=== PATIENT | male | born 1980 | race Caucasian/White ===

== ENCOUNTER → 2017-01-11 | Outpatient (REF) ==
[~2017-01-11] MED LIST: ALBUTEROL S0.4 MG/ML; DILANTIN 100MG100 MG PO; PHENERGAN 25 TA25 MG; RT ADVAIR 228 DISKUS; VICODIN 5/5001 UDTAB PO
== END ==
LOC: WSOH 10:33
DX: Z02.1 Encounter for pre-employment examination (principal)

== ENCOUNTER 2020-02-05 15:10 | Emergency (ER) | payer OTHER, BC ==
[~2020-02-05] VITALS: Ht 167.6 cm; Wt 88.2 kg
[2020-02-05 16:45] LABS: HEMATOCRIT 51.2 % (42.0-52.0); MEAN CELL VOLUME 92 fl (80.0-100.0); MEAN CORPUSCULAR HEMOGLOBIN 31 pg (27.0-31.0); MEAN CORPUSCULAR HGB CONC 33 g/dl (33.0-37.0); MEAN PLATELET VOLUME 10.3 fl (7.4-10.4); PLATELET COUNT 279 K/mm3 (130-400); RED BLOOD COUNT 5.56 M/mm3 (4.20-5.60); REDCELL DISTRIBUTION WIDTH-CV 12.7 % (11.5-14.5)
[2020-02-05 16:51] LABS: INR 1.1 (0.8-3.0); PROTHROMBIN TIME 12.8 SECONDS (9.7-12.8)
[2020-02-05 16:54] LABS: PARTIAL THROMBOPLASTIN TIME 42.4 SECONDS (26.0-37.0)
[2020-02-05 17:15] LABS: BAND 2 % (0-10); EOSINOPHIL 1 % (0-4); LYMPHOCYTE 20 % (20.0-51.0); METAMYELOCYTE 1 % (0-0); NEUTROPHILS 72 % (42.0-75.2); PLATELET ESTIMATE NORMAL (NORMAL)
[2020-02-05 17:17] LABS: ALBUMIN 5.3 gm/dL (3.5-5.0); BILIRUBIN,TOTAL 1.3 mg/dL (0.0-1.0); CALCIUM 9.4 mg/dL (8.4-10.2); CREATININE, serum 1.21 (0.66-1.25); POTASSIUM 3.5 mmol/L (3.4-5.0); TOTAL PROTEIN 8.9 gm/dL (6.4-8.2)
[2020-02-05 17:37] LABS: ARTERIAL BLD GAS O2 SATURATION 95.1 % (92-100); ARTERIAL BLD GAS TCO2 CT 15.8; ARTERIAL BLOOD GAS BASE EXCESS -11.6 (-2-2); ARTERIAL BLOOD GAS HCO3 14.8 meq/L (22-26); ARTERIAL BLOOD GAS PCO2 35.4 mmHg (35-45); ARTERIAL BLOOD GAS PO2 85.7 mmHg (80-100); ARTERIAL BLOOD GAS pH 7.24 (7.35-7.45)
[2020-02-05 18:45] VITALS: BP 123/68; PULSE 112; TEMP 98.1
== END 2020-02-05 18:55 | disposition short-term general hospital (02) ==
LOC: COL.ER 15:10
PROVIDERS: Emergency Medicine
DX: S06.339A Contusion and laceration of cerebrum, unspecified, with loss of consciousness of unspecified duration, initial encounter (principal); S06.5X9A Traumatic subdural hemorrhage with loss of consciousness of unspecified duration, initial encounter; R56.1 Post traumatic seizures; J45.909 Unspecified asthma, uncomplicated; W35.XXXA Explosion and rupture of boiler, initial encounter; Y92.59 Other trade areas as the place of occurrence of the external cause; Y99.0 Civilian activity done for income or pay
CPT/HCPCS: J1953; J2060; J2405; J3010; J7030